=== PATIENT | female | born 1960 | race Caucasian/White ===

== ENCOUNTER 2016-12-14 23:24 | Emergency (ER) | payer BC, OTHER ==
[2016-12-14 23:34] VITALS: BP 187/91
[2016-12-14] MEDS ORDERED: Sodium Chloride 0.9% 10 ML Syringe FLUSH PRN (23:49)
[2016-12-14] MEDS ORDERED: HYDROmorphone 1 MG/ML Syringe IVPUSH ONE (23:49)
[2016-12-14] MEDS ORDERED: Ondansetron 4 MG/2 ML SDV IVPUSH ONE (23:49)
[2016-12-15] MEDS ORDERED: HYDROmorphone 0.5 MG/0.5 ML Syringe IVPUSH ONE (00:14)
[2016-12-15] MEDS ORDERED: Prochlorperazine 10 MG in Sodium Chloride 0.9% 50 ML IV ONE (00:16)
--- NOTE | 2016-12-15 00:19 | EDM.PDOC ---
ED HPI RENAL/ - General Chief Complaint: Flank Pain Stated Complaint: LEFT FLANK PAIN Time Seen by Provider: 12/14/16 23:41 Source of Information: Reports: Patient, RN notes reviewed - History of Present Illness INITIAL COMMENTS - FREE TEXT/NARRATIVE: 56-year-old female comes in with severe left flank pain radiating to the back and to the left groin. This started about 45 minutes ago. He has had some mild achiness of the left flank and back off and on for the past 2 or 3 days. She also was having some bladder symptoms a few weeks ago and did start treatment for a possible UTI but then stopped it treatment because the antibiotic "was making her sick". She's had no fever or chills. She is nauseated, no vomiting. The pain does not radiate to her right abdomen. No back discomfort on the right. No chest pain or difficulty breathing. - Related Data Allergies/ADRs: Allergies Allergy/AdvReac Type Severity Reaction Status Date / Time No Known Allergies Allergy Verified 12/14/16 23:33 Home Meds: Home Meds Venlafaxine [Effexor XR 24 Hr] 75 mg PO DAILY 12/14/16 [History] Past Medical History Psychiatric History: Reports: Depression - Past Surgical History GI Surgical History: Reports: Cholecystectomy Social & Family History - Tobacco Use Smoking Status *Q: Never Smoker - Caffeine Use Caffeine Use: Reports: None - Recreational Drug Use Recreational Drug Use: No ED ROS GENERAL - Review of Systems Review Of Systems: See Below Constitutional: Denies: fever, chills, diaphoresis HEENT: Reports: No symptoms Respiratory: Denies: shortness of breath, pleuritic chest pain Cardiovascular: Denies: Chest pain GI/Abdominal: Reports: Abdominal pain (left flank going to left groin), Nausea. Denies: Constipation, Diarrhea, Vomiting : Reports: urgency (mild) Musculoskeletal: Reports: back pain (left back radiating to left flank and left groin). Denies: joint pain Skin: Reports: no symptoms Neurological: Reports: no symptoms ED EXAM, RENAL/ - Physical Exam Exam: See Below Exam Limited By: Other General Appearance: moderate distress Eye Exam: bilateral eye: PERRL Throat/Mouth: Normal inspection, Normal oropharynx Head: atraumatic Neck: supple, full range of motion Respiratory/Chest: no respiratory distress, lungs clear, normal breath sounds Cardiovascular: regular rate, rhythm GI/Abdominal: soft, tender (left lower abdomen). No: guarding, rebound Back Exam: CVA tenderness (L) Extremities: normal inspection, normal range of motion Neurological: alert, oriented, no motor/sensory deficits Skin Exam: Warm, Dry, Normal color Course - Vital Signs Last Recorded V/S: Last Vital Signs Temp 96.8 F 12/14/16 23:26 Pulse 68 12/15/16 01:30 Resp 16 12/15/16 01:30 BP 187/91 H 12/14/16 23:26 Pulse Ox 98 12/15/16 01:30 - Orders/Labs/Meds Orders: Active Orders 24 hr Category Date Time Status Peripheral IV Care [RC] . DIRECTED Care 12/14/16 23:49 Active Abdomen Pelvis wo Cont [CT] Stat Exams 12/14/16 23:49 Taken Peripheral IV Insertion Adult [OM.PC] Stat Oth 12/14/16 23:49 Ordered Labs: Laboratory Tests 12/14/16 12/14/16 12/15/16 Range/Units 23:35 23:35 00:57 WBC 9.65 (3.98-10.04) K/mm3 RBC 5.19 (3.98-5.22) M/mm3 Hgb 14.5 (11.2-15.7) gm/L Hct 44.6 (34.1-44.9) % MCV 85.9 (79.4-94.8) fl MCH 27.9 (25.6-32.2) pg MCHC 32.5 (32.2-35.5) g/dl RDW Std Deviation 43.5 (36.4-46.3) fL Plt Count 287 (182-369) K/mm3 MPV 9.9 (9.4-12.3) fl Neut % (Auto) 59.2 (34.0-71.1) % Lymph % (Auto) 25.9 (19.3-51.7) % [place] % (Auto) 9.6 (4.7-12.5) % Eos % (Auto) 4.4 (0.7-5.8) Baso % (Auto) 0.7 (0.1-1.2) % Neut # 5.71 (1.56-6.13) K/mm3 Lymph # 2.50 (1.18-3.74) K/mm3 [place] # 0.93 H (0.24-0.36) K/mm3 Eos # 0.42 H (0.04-0.36) K/mm3 Baso # 0.07 (0.01-0.08) K/mm3 Sodium 141 (136-145) mEq/L Potassium 4.2 (3.5-5.1) mEq/L Chloride 104 (98-107) mEq/L Carbon Dioxide 30 (21-32) mEq/L Anion Gap 11.2 (5-15) BUN 14 (7-18) mg/dL Creatinine 1.1 H (0.55-1.02) mg/dL Est Cr Clr Drug Dosing 50.49 mL/min Estimated GFR (MDRD) 52 (>60) mL/min BUN/Creatinine Ratio 12.7 L (14-18) Glucose 127 H (74-106) mg/dL Calcium 9.3 (8.5-10.1) mg/dL Total Bilirubin 0.6 (0.2-1.0) mg/dL AST 18 (15-37) U/L ALT 20 (14-59) U/L Alkaline Phosphatase 66 (46-116) U/L Total Protein 7.8 (6.4-8.2) g/dl Albumin 4.0 (3.4-5.0) g/dl Globulin 3.8 gm/dL Albumin/Globulin Ratio 1.1 (1-2) Urine Color [place] H (Yellow) Urine Appearance Slt cloudy H (Clear) Urine pH 5.0 (5.0-8.0) Ur Specific [place] 1.025 (1.005-1.030) Urine Protein 2+ H (Negative) Urine Glucose (UA) Trace H (Negative) Urine Ketones Trace H (Negative) Urine Occult Blood 1+ H (Negative) Urine Nitrite Positive H (Negative) Urine Bilirubin 1+ H (Negative) Urine Urobilinogen 2.0 H (0.2-1.0) Ur Leukocyte Esterase 3+ H (Negative) Urine RBC 5-10 H (0-5) /hpf Urine WBC 0-5 (0-5) /hpf Ur Squamous Epith Cells 0-5 (0-5) /hpf Urine Bacteria Rare (FEW) /hpf Urine Mucus Not seen (FEW) /hpf Urinalysis Comment Meds: Medications Discontinued Medications Generic Name Dose Route Start Last Admin Trade Name Trevor PRN Reason Stop Dose Admin Hydromorphone HCl 0.5 mg 12/14/16 23:49 12/14/16 23:57 Dilaudid IVPUSH 12/14/16 23:50 0.5 mg ONETIME ONE Administration Hydromorphone HCl 0.5 mg 12/15/16 00:14 12/15/16 00:19 Dilaudid IVPUSH 12/15/16 00:15 0.5 mg ONETIME ONE Administration Prochlorperazine Edisylate 10 52 mls @ 150 mls/hr 12/15/16 00:16 12/15/16 00: 26 mg/ Sodium Chloride IV 12/15/16 00:36 150 mls/hr ONETIME ONE Administration Ondansetron HCl 4 mg 12/14/16 23:49 12/14/16 23:55 Zofran IVPUSH 12/14/16 23:50 4 mg ONETIME ONE Administration Sodium Chloride 10 ml 12/14/16 23:49 12/15/16 00:02 Saline Flush FLUSH 10 ml ASDIRECTED PRN Administration Keep Vein Open - Re-Assessments/Exams Free Text/Narrative Re-Assessment/Exam: 12/15/16 00:45. patient has a large 7 mm stone left UVJ. There is mild left- sided hydronephrosis. See radiologist report for details. She has obtained fairly good relief of discomfort after IV Zofran and Dilaudid 0.5 mg x2. Discharge instructions as documented. Departure - Departure Time of Disposition: 01:19 Disposition: Home, Self-Care 01 Condition: fair Clinical Impression: Ureteric colic Instructions: Renal Colic Referrals: Tana Limon [facility] [Primary Care Provider] - Forms: ED Department Discharge Additional Instructions: strain urine to watch for stone, as discussed the stone you have is large 7 mm, therefore there is great possibility that this will not pass on its own. If the stone has not passed by morning I suggest you call Tabitha Limon's nurse and inform her that you have a large 7 mm stone sitting in the ureter on top of your bladder on the left side. have her nurse make an appointment for you to see a Urologist either tomorrow or more likely as soon as possible preferably early next week. Tylenol 3 or 4 times daily if needed for mild to moderate discomfort. You may take Percocet one full tablet if needed for severe pain or one half tablet if needed for moderate discomfort not relieved by Tylenol. return to ED as needed. Zofran if needed for severe nausea or vomiting. - My Orders Last 24 Hours: My Active Orders 12/14/16 23:49 Peripheral IV Care [RC] . DIRECTED Abdomen Pelvis wo Cont [CT] Stat Peripheral IV Insertion Adult [OM.PC] Stat - Assessment/Plan Last 24 Hours: My Active Orders 12/14/16 23:49 Peripheral IV Care [RC] . DIRECTED Abdomen Pelvis wo Cont [CT] Stat Peripheral IV Insertion Adult [OM.PC] Stat
--- NOTE | 2016-12-15 07:17 | CT ---
CT abdomen and pelvis Technique: Multiple axial sections were obtained from above the dome of the diaphragm inferiorly through the pubic symphysis. Intravenous contrast and oral contrast not given. Study has been performed as a ureteral stone protocol. Comparison: No previous abdominal or pelvic CT study is available. 8 mm obstructing stone noted within the distal left ureter at the UVJ. This causes proximal hydronephrosis. Small nonobstructing stone noted within the left kidney measuring about 6 mm. Second nonobstructing stone noted within the left kidney measuring approximately 5 mm. No abnormal calcifications seen on the right side. No right ureteral dilatation or right ureteral stone is seen. Visualized lung bases show nothing acute. Liver shows no focal abnormality. Noncontrast appearance of the spleen shows a minimal low density lesion which is felt to be incidental. Adrenal glands show no nodule. Pancreas is within normal limits. Aorta shows atherosclerotic change without aneurysmal dilatation. No retroperitoneal adenopathy or mesenteric abnormalities are seen. Small fat-containing umbilical hernia is noted. Appendix is seen which appears normal. No pelvic mass or adenopathy is seen. No bowel dilatation is seen. No free fluid is seen. Bone window settings were reviewed which show degenerative change most prominent within the apophyseal joints at L5-S1. Impression: 1. 8 mm stone within the distal left ureter at the UVJ causing proximal hydronephrosis. 2. Two nonobstructing calculi within the left kidney. 3. Other incidental findings. Diagnostic code #3 I agree with preliminary report issued by [facility] (preliminary report dictated on 12/15/16, 1:29 AM Central Time)
== END 2016-12-15 01:30 | disposition home or self-care (01) ==
LOC: JD.ED 23:24
DX: N23 Unspecified renal colic (principal); F32.9 Major depressive disorder, single episode, unspecified; Z79.899 Other long term (current) drug therapy; Z90.49 Acquired absence of other specified parts of digestive tract
CPT/HCPCS: 36415; 74176; 80053; 81001; 85025; 96365; 96375; 99284; J0780; J1170; J2405; J7050

== ENCOUNTER 2022-08-27 16:24 | Emergency (ER) | payer BC, OTHER ==
[2022-08-27] MEDS ORDERED: Ondansetron 4 MG/2 ML SDV IVPUSH ONE (16:44)
[2022-08-27] MEDS ORDERED: Sodium Chloride 0.9% 10 ML Syringe FLUSH PRN (16:44)
[2022-08-27] MEDS ORDERED: Sodium Chloride 0.9% 1,000 ML IV SCH (16:45)
[2022-08-27] MEDS ORDERED: HYDROmorphone 0.5 MG/0.5 ML Syringe IVPUSH ONE ×2 (16:50→17:25)
[2022-08-27] MEDS ORDERED: Metoclopramide 10 MG/2 ML SDV IVPUSH ONE ×2 (17:25→19:21)
[2022-08-27] MEDS ORDERED: Tamsulosin 0.4 MG Cap.ER PO ONE (17:26)
[2022-08-27] MEDS ORDERED: Ketorolac 30 MG/ML SDV IVPUSH ONE (17:51)
[2022-08-27] MEDS ORDERED: Sodium Chloride 0.9% 1,000 ML IV ONE (18:01)
[2022-08-27] MEDS ORDERED: Metoclopramide 5 MG Tab PO ONE (18:51)
[2022-08-27] MEDS: Metoclopramide 10 MG Tab ONE (19:29)
[2022-08-27 20:16] VITALS: BP 173/99; PULSE 72
== END 2022-08-27 19:34 | disposition home or self-care (01) ==
LOC: JD.ED 16:24
DX: N20.1 Calculus of ureter (principal); Z79.899 Other long term (current) drug therapy; Z90.49 Acquired absence of other specified parts of digestive tract
CPT/HCPCS: 36415; 74176; 80053; 81001; 85025; 96361; 96374; 96375; 96376; 99284; A9270; J1170; J1885; J2405; J2765; J7030

== ENCOUNTER 2023-03-13 06:56 | Day surgery (SDC) | payer BC ==
[~2023-03-13 06:56] MED LIST: Lactated Ringers 1,000 ML IV SCH; Lidocaine 1%/Sod Bicarbonate in NS 8.4% 1 ML Syringe IDERM PRN; Sodium Chloride 0.9% 10 ML Syringe FLUSH PRN; Sodium Chloride 0.9% 10 ML Syringe FLUSH SCH
[2023-03-13 07:12] LABS: BASOPHILS ABSOLUTE AUTO 0.05 K/mm3 (0.01-0.08); BASOPHILS PERCENT AUTO 0.6 % (0.1-1.2); EOSINOPHILS ABSOLUTE AUTO 0.34 K/mm3 (0.04-0.36); EOSINOPHILS PERCENT AUTO 4.2 (0.7-5.8); HEMATOCRIT 45.6 % (34.1-44.9); IMMATURE GRAN ABSOLUTE AUTO 0.01 K/mm3 (0.00-0.10); IMMATURE GRAN PERCENT AUTO 0.1 % (<=1.0); LYMPHOCYTES ABSOLUTE AUTO 2.05 K/mm3 (1.18-3.74); LYMPHOCYTES PERCENT AUTO 25.3 % (19.3-51.7); MEAN CORPUSCULAR HEMOGLOBIN 28.5 pg (25.6-32.2); MEAN CORPUSCULAR HGB CONC 32.9 g/dl (32.2-35.5); MEAN CORPUSCULAR VOLUME 86.5 fl (79.4-94.8); MEAN PLATELET VOLUME 9.6 fl (9.4-12.3); MONOCYTES ABSOLUTE AUTO 0.57 K/mm3 (0.24-0.36); NEUTROPHILS ABSOLUTE AUTO 5.08 K/mm3 (1.56-6.13); NEUTROPHILS PERCENT AUTO 62.8 % (34.0-71.1); PLATELET COUNT,PLT 291 K/mm3 (182-369); RED BLOOD CELL COUNT 5.27 M/mm3 (3.98-5.22)
[2023-03-13] MEDS ORDERED: Midazolam 1 MG/ML 2 ML SDV ONE (07:37)
[2023-03-13] MEDS ORDERED: Propofol 200 MG/20 ML SDV ONE (07:37)
[2023-03-13] MEDS ORDERED: fentaNYL 100 MCG/2 ML SDV ONE (07:37)
[2023-03-13 07:39] LABS: ANION GAP 14.7 (5-15); BUN/CREATININE RATIO 11.1 (14-18); CALCIUM 9.1 mg/dL (8.5-10.1); CREATININE 0.9 mg/dL (0.55-1.02); EST CRCL DRUG DOSING (CG) 57.82 mL/min; POTASSIUM,K 3.7 mEq/L (3.5-5.1)
[2023-03-13] MEDS ORDERED: Lidocaine 1% 30 ML SDV ONE (07:39)
[2023-03-13 08:24] VITALS: BP 156/80
[2023-03-13 09:26] VITALS: PULSE 62
== END 2023-03-13 09:30 | disposition home or self-care (01) ==
LOC: JD.SDS 06:56
PROVIDERS: ATTEND Obstetrics & Gynecology
DX: N84.0 Polyp of corpus uteri (principal); I10 Essential (primary) hypertension; E11.65 Type 2 diabetes mellitus with hyperglycemia; F41.9 Anxiety disorder, unspecified; E55.9 Vitamin D deficiency, unspecified; D53.9 Nutritional anemia, unspecified; E78.5 Hyperlipidemia, unspecified; M54.50 Low back pain, unspecified; G89.29 Other chronic pain; Z98.890 Other specified postprocedural states; Z90.49 Acquired absence of other specified parts of digestive tract; Z91.048 Other nonmedicinal substance allergy status
CPT/HCPCS: 36415; 58120; 80048; 85025; 86850; 86900; 86901; J2250; J2704; J3010; J7120; J3490